=== PATIENT | female | born 1955 | race American Indian/Alaskan Native ===

== ENCOUNTER 2017-04-18 06:44 | Day surgery (SDC) | payer OTHER ==
[2017-04-18 07:40] LABS: Basophils % (Auto) 0.8 % (0.0-1.8); Eosinophils % (Auto) 0.1 % (0.0-4.3); Hematocrit 40.6 % (30.3-42.9); Hemoglobin 13.4 gm/dl (10.1-14.3); Mean Corpuscular HGB Conc 33 % (30-34); Mean Corpuscular Hemoglobin 31 pg (28-32); Mean Corpuscular Volume 94 fl (79-97); Platelet Count 163 K/mm3 (140-440); Red Blood Count 4.32 M/mm3 (3.65-5.03); Red Cell Distribution Width 12.9 % (13.2-15.2); White Blood Count 10.4 K/mm3 (4.5-11.0)
[2017-04-18 07:55] LABS: INR 0.95 (0.87-1.13)
[2017-04-18] MEDS ORDERED: ECOTRIN PO ONE (08:00)
[2017-04-18] MEDS ORDERED: NACL 0.9% 500 ML 500 ML IV SCH (08:00)
[2017-04-18 08:30] LABS: Sodium TNR mmol/L (137-145)
[2017-04-18 08:31] LABS: Anion Gap TNR mmol/L; BUN/Creatinine Ratio TNR; Blood Urea Nitrogen TNR mg/dL (7-17); Calcium TNR mg/dL (8.4-10.2); Carbon Dioxide TNR mmol/L (22-30); Chloride TNR mmol/L (98-107); Glucose TNR mg/dL (65-100); Potassium TNR mmol/L (3.6-5.0)
[2017-04-18] MEDS ORDERED: HEPARIN/NS 5000 UNIT/500ML(CATH LAB) 1,000 ML IR ONE (08:38)
[2017-04-18] MEDS ORDERED: NITROGLYCERIN SYRINGE 3 ML ONE (08:38)
[2017-04-18] MEDS: VERSED ONE ×2 (09:08→09:27)
[2017-04-18] MEDS: XYLOCAINE 2% INFILTRATI ONE ×2 (09:08→09:25)
[2017-04-18] MEDS: HEPARIN 10,000 UNITS/10 ML ONE ×2 (09:08→09:28)
[2017-04-18] MEDS: CALAN ONE ×2 (09:08→09:27)
[2017-04-18] MEDS: SUBLIMAZE ONE ×2 (09:08→09:27)
[2017-04-18 09:12] LABS: Anion Gap 17 mmol/L; BUN/Creatinine Ratio 11.81; Blood Urea Nitrogen 13 mg/dL (7-17); Calcium 10.4 mg/dL (8.4-10.2); Carbon Dioxide 27 mmol/L (22-30); Chloride 105.1 mmol/L (98-107); Glucose 105 mg/dL (65-100); Sodium 145 mmol/L (137-145)
--- NOTE | 2017-04-18 11:58 | Cardiac Catherization Report ---
CARDIAC CATHETERIZATION CLINICAL INFORMATION: The patient is a 61-year-old white female with history of essential hypertension, hyperlipidemia, was having atypical chest pains, was noted to have abnormal stress EKG with ST depressions in the inferior lateral leads. There is a strong family history of coronary disease with father dying of massive myocardial infarction at the age of 59. Hence, scheduled for cardiac catheterization for definitive diagnosis and treatment. The patient is aware of the procedure, potential complications, and alternatives of therapy available. DESCRIPTION OF PROCEDURE: The patient was brought to the catheterization laboratory in a fasting condition. Right wrist area and forearm thoroughly cleansed with Betadine solution. Sterile drapes were applied. Local anesthesia was achieved using 2% Xylocaine. Right radial artery puncture was made using 21-gauge arterial puncture needle. Subsequently, [place] sheath was introduced. A [place] multipurpose catheter was used to obtain the angiograms of the left coronary artery in multiple views followed by angiograms of the right coronary artery in multiple views and left ventriculogram done in RUBI projection using hand injection. At the end of the procedure, catheter and sheath were removed and good hemostasis was achieved with pressure bandage. Following findings were noted. HEMODYNAMICS: 1. Opening aortic pressure 167/81, left ventricular pressure 167/24. No gradient across the aortic valve. Estimated ejection fraction 55% to 60%. 2. Left ventriculogram done in RUBI projection using hand injection showed normal sized left ventricle with normal contractility. End-systolic and end diastolic volumes are normal. Mitral regurgitation could not be evaluated because of limited amount of dye injected. 3. Right coronary artery dominant vessel, but with very small PDA. It is angiographically smooth and normal, arises normally from right coronary cusp. 4. Left coronary artery arises normally from left coronary cusp. Left main is smooth and normal. LAD is very tortuous, but angiographically smooth and normal. Circumflex artery and its branches are angiographically smooth and normal. FINAL IMPRESSION: Normal sized left ventricle with normal contractility, essentially normal coronary anatomy with tortuous arteries. At this time, the patient's chest pain appeared to be atypical and significance of ST depressions on the stress EKG are not clear. Would recommend continued risk factor modification with medical therapy for symptoms. However, angiographically no significant coronary artery disease is noted. The patient tolerated the procedure well. [facility]# [id number] JOSIE/LANIE ESCALERA
[2017-04-18 12:23] VITALS: BP 151/80
--- NOTE | 2017-04-18 15:37 | Short Stay Summary ---
Short Stay Documentation Date of service: 04/18/17 - History H&P: obtained from office - Allergies and Medications Current Medications: Allergies metronidazole [From Flagyl] Allergy (Verified 04/12/16 11:02) Angioedema Home Medications Medication Instructions Recorded Confirmed Last Taken Type Aspirin [Adult Low Dose Aspirin EC] 81 mg PO QDAY 04/18/17 04/18/17 04/17/17 History Atenolol [Tenormin] 25 mg PO QDAY 04/18/17 04/18/17 04/17/17 History Hydrochlorothiazide [HCTZ] 12.5 mg PO QDAY 04/18/17 04/18/17 04/17/17 History ISOSORBIDE MONOnitrate [Imdur ER] 30 mg PO QDAY 04/18/17 04/18/17 04/17/17 History Lovastatin [Altoprev] 20 mg PO DAILY 04/18/17 04/18/17 04/17/17 History Pantoprazole [Protonix] 40 mg PO QDAY 04/18/17 04/18/17 04/17/17 History Ranitidine HCl [Heartburn Relief] 150 mg PO BID 04/18/17 04/18/17 04/17/17 History amLODIPine [Norvasc] 5 mg PO DAILY 04/18/17 04/18/17 04/17/17 History cloNIDine [Catapres] 0.1 mg PO BID 04/18/17 04/18/17 04/17/17 History - Brief post op/procedure progress note Date of procedure: 04/18/17 Pre-op diagnosis: abnormal stress test Post-op diagnosis: same Procedure: C - see cath report Anesthesia: local Estimated blood loss: none Condition: stable - Disposition Condition at discharge: Stable Disposition: DC-01 TO HOME OR SELFCARE - Discharge Diagnoses (1) Abnormal stress test Status: Ruled-out (2) Hypertension Status: Chronic Qualifiers: Hypertension type: H Short Stay Discharge Plan Activity: advance as tolerated Diet: low fat, low cholesterol, low salt Wound: open to air, keep clean and dry, per your surgeon's advice Follow up with: KATHARINE SEPULVEDA MD [Primary Care Provider] - 7 Days Forms: CardCath PCI D/C Instructions
== END 2017-04-18 12:40 | disposition home or self-care (01) ==
LOC: CATHLABREC 06:44
PROVIDERS: ATTEND Internal Medicine
DX: R94.39 Abnormal result of other cardiovascular function study (principal); R07.9 Chest pain, unspecified; F17.210 Nicotine dependence, cigarettes, uncomplicated; I10 Essential (primary) hypertension; E78.5 Hyperlipidemia, unspecified; Z79.01 Long term (current) use of anticoagulants; Z79.899 Other long term (current) drug therapy; Z82.49 Family history of ischemic heart disease and other diseases of the circulatory system; Z91.048 Other nonmedicinal substance allergy status
CPT/HCPCS: 36415; 80048; 85025; 85610; 85730; 93005; 93010; 93458; C1894; J1644; J2250; J3010; J7040; Q9967